=== PATIENT | female | born 1940 | race Caucasian/White ===

== ENCOUNTER → 2017-02-28 | Outpatient (CLI) | payer MEDICARE ==
[~2017-02-28] MED LIST: ACETAMINOPHEN120 MG ORAL; ASPIR 8181 MG ORAL; BISACODYL5 MG ORAL; CENTRUM SILVER1 EAC4 PO; COZAAR50 MG ORAL; FUROSEMIDE20 M1 ORAL; IBUPROFEN600 MG ORAL; KLOR-CON20 MEQ ORAL; LIPITOR20 MG ORAL; LISINOPRIL20 MG ORAL; LOPERAMIDE2 MG PO; METFORMIN HCL500 M1 ORAL; METOPROLOL SUCC50 MG ORAL; MILK OF MA400 MG/51 ORAL; NORVASC10 MG ORAL; TRAZODONE HCL50 MG ORAL; ZOLOFT100 MG ORAL
== END | disposition home or self-care (01) ==
LOC: ECT 09:16
DX: F31.4 Bipolar disorder, current episode depressed, severe, without psychotic features (principal); I12.9 Hypertensive chronic kidney disease with stage 1 through stage 4 chronic kidney disease, or unspecified chronic kidney disease; E11.22 Type 2 diabetes mellitus with diabetic chronic kidney disease; N18.9 Chronic kidney disease, unspecified; Z99.2 Dependence on renal dialysis

== ENCOUNTER 2017-03-04 06:26 | Outpatient (RCR) | payer MEDICARE ==
[~2017-03-04] VITALS: Ht 160 cm; Wt 135.0 kg
[2017-03-04] MEDS ORDERED: Glycopyrrolate 0.2mg/ml 1ml Vial ONE (06:27)
[2017-03-04] MEDS ORDERED: Midazolam 2mg/2ml Inj ONE (06:27)
[2017-03-04] MEDS ORDERED: Succinylcholine 20mg/ml 10ml vial ONE (06:27)
[2017-03-04] MEDS ORDERED: Methohexital Sodium Syr 100mg/10ml IVP ONE (06:27)
[2017-03-06] MEDS ORDERED: Methohexital Sodium Syr 100mg/10ml IVP ONE (07:00)
[2017-03-06] MEDS ORDERED: Succinylcholine 20mg/ml 10ml vial ONE (07:00)
[2017-03-06] MEDS ORDERED: Glycopyrrolate 0.2mg/ml 1ml Vial ONE (07:00)
[2017-03-06] MEDS ORDERED: Midazolam 2mg/2ml Inj ONE (07:00)
[2017-03-06] MEDS ORDERED: NS 550ML IV ONE (07:00)
[2017-03-08] MEDS ORDERED: Midazolam 2mg/2ml Inj ONE (07:00)
[2017-03-08] MEDS ORDERED: NS 550ML IV ONE (07:00)
[2017-03-08] MEDS ORDERED: Succinylcholine 20mg/ml 10ml vial ONE (07:00)
[2017-03-08] MEDS ORDERED: Methohexital Sodium Syr 100mg/10ml IVP ONE (07:00)
[2017-03-08] MEDS ORDERED: Glycopyrrolate 0.2mg/ml 1ml Vial ONE (07:00)
== END 2017-03-13 | disposition home or self-care (01) ==
LOC: ECT 06:26
DX: F31.4 Bipolar disorder, current episode depressed, severe, without psychotic features (principal); N19 Unspecified kidney failure; Z99.2 Dependence on renal dialysis; E11.9 Type 2 diabetes mellitus without complications; I10 Essential (primary) hypertension
CPT/HCPCS: 90870; J0330; J2250; J2405; J7040

== ENCOUNTER 2017-03-15 08:39 | Outpatient (RCR) | payer MEDICARE ==
[~2017-03-15] VITALS: Ht 160 cm; Wt 61.2 kg
[2017-03-18] MEDS ORDERED: Glycopyrrolate 0.2mg/ml 1ml Vial ONE (08:00)
[2017-03-18] MEDS ORDERED: Succinylcholine 20mg/ml 10ml vial ONE (08:00)
[2017-03-18] MEDS ORDERED: Midazolam 2mg/2ml Inj ONE (08:00)
[2017-03-18] MEDS ORDERED: Methohexital Sodium Syr 100mg/10ml IVP ONE (08:00)
[2017-03-18] MEDS ORDERED: NS 550ML IV ONE (08:00)
[2017-03-18] MEDS ORDERED: Atropine Sulfate 0.4mg/ml inj IVP PRN (11:33)
[2017-03-20] MEDS ORDERED: Midazolam 2mg/2ml Inj ONE (08:00)
[2017-03-20] MEDS ORDERED: NS 550ML IV ONE (08:00)
[2017-03-20] MEDS ORDERED: Succinylcholine 20mg/ml 10ml vial ONE (08:00)
[2017-03-20] MEDS ORDERED: Glycopyrrolate 0.2mg/ml 1ml Vial ONE (08:00)
[2017-03-20] MEDS ORDERED: Methohexital Sodium Syr 100mg/10ml IVP ONE (08:00)
[2017-03-20] MEDS ORDERED: Atropine Sulfate 0.4mg/ml inj IVP PRN (09:23)
[2017-03-22] MEDS ORDERED: NS 550ML IV ONE (07:00)
[2017-03-22] MEDS ORDERED: Succinylcholine 20mg/ml 10ml vial ONE (07:00)
[2017-03-22] MEDS ORDERED: Glycopyrrolate 0.2mg/ml 1ml Vial ONE (07:00)
[2017-03-22] MEDS ORDERED: Midazolam 2mg/2ml Inj ONE (07:00)
[2017-03-22] MEDS ORDERED: Methohexital Sodium Syr 100mg/10ml IVP ONE (07:00)
[2017-03-22] MEDS ORDERED: Atropine Sulfate 0.4mg/ml inj IVP PRN (08:32)
[2017-03-25] MEDS ORDERED: Methohexital Sodium 500mg Vial IVP ONE (19:44)
[2017-03-25] MEDS ORDERED: Glycopyrrolate 0.2mg/ml 1ml Vial ONE (19:44)
[2017-03-25] MEDS ORDERED: Midazolam 2mg/2ml Inj ONE (19:44)
[2017-03-25] MEDS ORDERED: NS 550ML IV ONE (19:44)
[2017-03-25] MEDS ORDERED: Succinylcholine 20mg/ml 10ml vial ONE (19:44)
[2017-04-10] MEDS ORDERED: Midazolam 2mg/2ml Inj ONE (12:30)
[2017-04-10] MEDS ORDERED: Methohexital Sodium Syr 100mg/10ml IVP ONE (12:30)
[2017-04-10] MEDS ORDERED: Glycopyrrolate 0.2mg/ml 1ml Vial ONE (12:30)
[2017-04-10] MEDS ORDERED: NS 550ML IV ONE (12:30)
[2017-04-10] MEDS ORDERED: Succinylcholine 20mg/ml 10ml vial ONE (12:30)
== END 2017-04-12 | disposition home or self-care (01) ==
LOC: ECT 08:39
DX: F31.4 Bipolar disorder, current episode depressed, severe, without psychotic features (principal)
CPT/HCPCS: 90870; J0330; J2250; J2405; J3490; J7040

== ENCOUNTER 2017-04-29 06:52 | Outpatient (RCR) | payer MEDICARE | END 2017-05-13 | disposition home or self-care (01) | LOC: ECT 06:52 | DX: F31.4 Bipolar disorder, current episode depressed, severe, without psychotic features (principal) ==

== ENCOUNTER 2019-11-15 15:34 | Inpatient (IN) | payer MEDICARE ==
[~2019-11-15] VITALS: Ht 165.1 cm; Wt 68.5 kg
[2019-11-15 15:35] VITALS: BP 210/116
--- NOTE | 2019-11-15 15:35 | NUR ---
ED Nurse Note: Patient [facility] from [facility] d/t dizziness x 3 hours. Patient hypertensive when connected to the claims correspondence clerk, Dr. Gtz aware. 20 g IV started in left basilic and right forearm. Patient AxO x 4, no s/s of acute distress. Patient on the claims correspondence clerk, bed in lowest position. Blood sent to lab.
--- NOTE | 2019-11-15 16:02 | Emergency Room Report ---
History of Present Illness General Chief Complaint: Dizziness Source: Patient, Medical Record, EMS Present Illness HPI Patient presents with complaints of severe dizziness Reports that this morning patient awoke with symptoms Denies any change in medications denies any headache patient gets dialysis Saturday and is due tomorrow denies any focal weakness denies any visual changes Denies any recent travel or trauma Dizziness does not appear to be associated with any position or movement Allergies: Coded Allergies: No Known Allergies (Unverified , 09/07/16) Patient History Past Medical History: see triage record Last Menstrual Period: N/A Now: No Reviewed Nursing Documentation: PMH: Agreed; PSxH: Agreed Nursing Documentation-PMH Hx Hypertension: Yes Hx Diabetes: Yes - Type 2 Hx Cancer: No Hx Gastrointestinal Problems: No - ESRD History Of Psychiatric Problem: Yes - Depression Hx Neurological Problems: No Review of Systems All Other Systems: negative except mentioned in HPI Physical Exam Vital Signs Date Time Temp Pulse Resp B/P (MAP) Pulse Ox O2 Delivery O2 Flow Rate FiO2 11/15/19 15:26 98.1 84 16 210/116 (147) 98 Room Air Sp02 EP Interpretation: reviewed, normal General Appearance: well appearing, no apparent distress Head: normocephalic, atraumatic Eyes: bilateral eye PERRL, bilateral eye EOMI ENT: hearing grossly normal, normal pharynx, TMs + canals normal, uvula midline Neck: full range of motion, supple, no meningismus, no bony tend Respiratory: lungs clear, normal breath sounds, no rhonchi, no respiratory distress, no retraction, no accessory muscle use Cardiovascular #1: normal peripheral pulses, regular rate, rhythm, no edema, no gallop, no JVD, no murmur Gastrointestinal: normal bowel sounds, non tender, soft, no mass, no organomegaly, non-distended, no guarding, no hernia, no pulsatile mass, no rebound Genitourinary: no CVA tenderness Musculoskeletal: normal inspection Neurologic: motor strength/tone normal, forestry fire aide III-XII nml as tested, oriented x3 , sensory intact, responsive Psychiatric: mood/affect normal Skin: no rash - Dialysis catheter in the right upper chest Lymphatic: normal inspection, no adenopathy Medical Decision Making Diagnostic Impression: Primary Impression: Hyperkalemia Additional Impression: Dizziness ER Course Patient is a fairly complex patient with multiple differential to consideration including but not limited to cardiac cardiopulmonary and vascular emergencies Other neurological differentials also entertained Patient's blood work shows findings consistent with renal failure potassium level however is also high at 5.9 this is medically intervened patient's EKG does not show any changes at this time admitted for further care Labs Test 11/15/19 16:10 White Blood Count 9.1 K/UL (4.8-10.8) Red Blood Count 4.26 M/UL (4.20-5.40) Hemoglobin 12.8 G/DL (12.0-16.0) Hematocrit 41.4 % (37.0-47.0) Mean Corpuscular Volume 97 FL (80-99) Mean Corpuscular Hemoglobin 30.1 PG (27.0-31.0) Mean Corpuscular Hemoglobin Concent 31.0 G/DL (32.0-36.0) Red Cell Distribution Width 14.1 % (11.6-14.8) Platelet Count 155 K/UL (150-450) Mean Platelet Volume 8.1 FL (6.5-10.1) Neutrophils (%) (Auto) 72.6 % (45.0-75.0) Lymphocytes (%) (Auto) 18.7 % (20.0-45.0) Monocytes (%) (Auto) 6.5 % (1.0-10.0) Eosinophils (%) (Auto) 1.2 % (0.0-3.0) Basophils (%) (Auto) 1.0 % (0.0-2.0) Sodium Level 138 MMOL/L (136-145) Potassium Level 5.9 MMOL/L (3.5-5.1) Chloride Level 100 MMOL/L (98-107) Carbon Dioxide Level 23 MMOL/L (21-32) Anion Gap 15 mmol/L (5-15) Blood Urea Nitrogen 68 mg/dL (7-18) Creatinine 8.1 MG/DL (0.55-1.30) Estimat Glomerular Filtration Rate mL/min (>60) Glucose Level 106 MG/DL (74-106) Calcium Level 9.2 MG/DL (8.5-10.1) Total Bilirubin 0.4 MG/DL (0.2-1.0) Aspartate Amino Transf (AST/SGOT) 19 U/L (15-37) Alanine Aminotransferase (ALT/SGPT) 13 U/L (12-78) Alkaline Phosphatase 73 U/L (46-116) Total Creatine Kinase 75 U/L (26-308) Troponin I 0.012 ng/mL (0.000-0.056) Total Protein 8.1 G/DL (6.4-8.2) Albumin 3.8 G/DL (3.4-5.0) Globulin 4.3 g/dL Albumin/Globulin Ratio 0.9 (1.0-2.7) Lipase 325 U/L (73-393) Rhythm Strip Diag. Results EP Interpretation: yes Rate: 88 Rhythm: NSR, no PVC's, no ectopy Chest X-Ray Diagnostic Results Chest X-Ray Diagnostic Results : Chest X-Ray Ordered: Yes # of Views/Limited/Complete: 1 View Indication: Chest Pain EP Interpretation: Yes Interpretation: no consolidation, no effusion, no pneumothorax Impression: No acute disease Electronically Signed by: Rodrigue Gtz DO CT/MRI/US Diagnostic Results CT/MRI/US Diagnostic Results : Impression CT head no acute disease Last Vital Signs Date Time Temp Pulse Resp B/P (MAP) Pulse Ox O2 Delivery O2 Flow Rate FiO2 11/15/19 15:26 98.1 84 16 210/116 (147) 98 Room Air Status: improved Disposition: ADMITTED INPATIENT Condition: Serious Rodrigue Gtz DO Nov 15, 2019 16:02
[2019-11-15 16:50] LABS: EOSINOPHILS % (AUTO) 1.2 % (0.0-3.0); HEMATOCRIT 41.4 % (37.0-47.0); HEMOGLOBIN 12.8 G/DL (12.0-16.0); LYMPHOCYTES % (AUTO) 18.7 % (20.0-45.0); MEAN CORPUSCULAR VOLUME 97 FL (80-99); MONOCYTES % (AUTO) 6.5 % (1.0-10.0); NEUTROPHILS % (AUTO) 72.6 % (45.0-75.0); PLATELET COUNT 155 K/UL (150-450); RED BLOOD COUNT 4.26 M/UL (4.20-5.40); RED CELL DISTRIBUTION WIDTH 14.1 % (11.6-14.8); WHITE BLOOD COUNT 9.1 K/UL (4.8-10.8)
--- NOTE | 2019-11-15 17:07 | Diagnostic Imaging Report ---
Indication: Headache Technique: Contiguous 5 mm thick transaxial imaging of the head obtained in a Siemens Sensation [address] scanner. Soft tissue and bone windows generated. Automatic Exposure Control was utilized. Total Dose length Product (DLP): [address] Dose Index Volume (CTDIvol): 60 mGy Comparison: none Findings: There is mild prominence of the ventricles, basal cisterns, and cerebral sulci consistent with atrophy. Mild, nonspecific, white matter hypoattenuation is noted throughout the brain consistent with chronic small vessel disease. Intracranial arterial calcifications are noted consistent with atherosclerotic disease. There is no midline shift, edema, acute hemorrhage, mass effect, or abnormal extra-axial fluid collections. Bones are unremarkable. Impression: No acute intracranial bleed, mass effect or edema. Mild atrophy of the brain. Nonspecific white matter hypoattenuation probably due to chronic small vessel disease. [facility] has communicated the preliminary results to the Emergency Department. Their findings are largely concordant with this report. The CT scanner at [facility] is accredited by the [employer] and the scans are performed using dose optimization techniques as appropriate to a performed exam including Automatic Exposure control.
--- NOTE | 2019-11-15 17:20 | NUR ---
ED Nurse Note: Patient's BP currently 170/98, amlodipine given per Dr. Gtz. Patient resting in bed, no s/s of acute distress.
[2019-11-15 17:37] LABS: ALANINE AMINOTRANSFERASE 13 U/L (12-78); ALBUMIN 3.8 G/DL (3.4-5.0); ALBUMIN/GLOBULIN RATIO 0.9 (1.0-2.7); ALKALINE PHOSPHATASE 73 U/L (46-116); ANION GAP 15 mmol/L (5-15); ASPARTATE AMINO TRANSFERASE 19 U/L (15-37); BILIRUBIN,TOTAL 0.4 MG/DL (0.2-1.0); BLOOD UREA NITROGEN 68 mg/dL (7-18); CALCIUM 9.2 MG/DL (8.5-10.1); CARBON DIOXIDE 23 MMOL/L (21-32); CHLORIDE 100 MMOL/L (98-107); CREATINE KINASE 75 U/L (26-308); CREATININE 8.1 MG/DL (0.55-1.30); POTASSIUM 5.9 MMOL/L (3.5-5.1); SODIUM 138 MMOL/L (136-145)
[2019-11-15] MEDS ORDERED: Sodium Polystyrene Sulfonate 15gm Powder ORAL ONE (17:45)
[2019-11-15] MEDS ORDERED: Insulin Human Regular 100units/ml 3ml IV ONE (17:45)
[2019-11-15 18:24] VITALS: BP 170/98
--- NOTE | 2019-11-15 19:05 | NUR ---
HANDOFF: Handoff report given to Salena QUILES.
--- NOTE | 2019-11-15 19:19 | NUR ---
ED Nurse Note: pt refused CRE/VRE swab, explained risks of this and hospital protocol to pt, she understands and still refuses the swab. MRSA swab obtained
--- NOTE | 2019-11-15 19:50 | NUR ---
ED Nurse Note: Handoff report given to Jay QUILES
[2019-11-15] MEDS: Metoprolol Succinate XL 50mg tab ORAL SCH (20:00)
--- NOTE | 2019-11-15 20:30 | NUR ---
NURSE NOTES: Received patient from ED. Patient on room air, no signs of respiratory distress. Alert and oriented to self, time, place, and situation. Oriented patient to the unit. Call light within reach. Bed in low position, locked, bed alarm on.
[2019-11-15 20:40] VITALS: BP 104/71
[2019-11-15] MEDS ORDERED: Sodium Polystyrene Sulfonate 15gm Powder ORAL SCH (22:00)
--- NOTE | 2019-11-15 23:00 | NUR ---
NURSE NOTES: Patient c/o difficulty sleeping. Notified Dr. Knight and requested medication for the patient.
[2019-11-16] VITALS (9 sets, daily range): BP systolic 119–190; BP diastolic 68–89
[2019-11-16] MEDS: HydrALAZINE 25mg tab ORAL SCH ×3 (00:38→05:21)
[2019-11-16] MEDS: Zolpidem 5mg tab ORAL PRN (01:10)
[2019-11-16 07:29] LABS: BASOPHILS % (AUTO) 1.1 % (0.0-2.0); EOSINOPHILS % (AUTO) 2.1 % (0.0-3.0); HEMATOCRIT 35.8 % (37.0-47.0); HEMOGLOBIN 12.2 G/DL (12.0-16.0); LYMPHOCYTES % (AUTO) 18.5 % (20.0-45.0); MEAN CORPUSCULAR VOLUME 91 FL (80-99); MONOCYTES % (AUTO) 7.9 % (1.0-10.0); NEUTROPHILS % (AUTO) 70.5 % (45.0-75.0); PLATELET COUNT 150 K/UL (150-450); RED BLOOD COUNT 3.95 M/UL (4.20-5.40); RED CELL DISTRIBUTION WIDTH 13.4 % (11.6-14.8); WHITE BLOOD COUNT 9.7 K/UL (4.8-10.8)
--- NOTE | 2019-11-16 07:30 | NUR ---
NURSE NOTES: Received pt from DAISY QUILES. Pt is alert and awake. Pt is in RA, No SOB or acute respiratory distress noted. Pt has intact iv acces LAC and RFA 20G SL. No complain of pain at this moment. pt is on continues heart monitoring. Pt is eating breakfast by observation. Dr LOMELI is aware about K 6, he will F/U and is aware about HTN, no new order to RN. all needs attended, bed is locked and is in the lowest position, call light within easy reach. will continue to monitor.
[2019-11-16 07:58] LABS: ALANINE AMINOTRANSFERASE 11 U/L (12-78); ALBUMIN 3.4 G/DL (3.4-5.0); ALBUMIN/GLOBULIN RATIO 0.9 (1.0-2.7); ALKALINE PHOSPHATASE 60 U/L (46-116); ANION GAP 14 mmol/L (5-15); ASPARTATE AMINO TRANSFERASE 16 U/L (15-37); BILIRUBIN,TOTAL 0.4 MG/DL (0.2-1.0); BLOOD UREA NITROGEN 77 mg/dL (7-18); CALCIUM 8.1 MG/DL (8.5-10.1); CARBON DIOXIDE 23 MMOL/L (21-32); CHLORIDE 103 MMOL/L (98-107); CHOLESTEROL 147 MG/DL (< 200); CREATININE 9.5 MG/DL (0.55-1.30); HDL CHOLESTEROL 55 MG/DL (40-60); PHOSPHORUS 8.1 MG/DL (2.5-4.9); SODIUM 140 MMOL/L (136-145); TRIGLYCERIDES 46 MG/DL (30-150)
[2019-11-16] MEDS ORDERED: Sodium Polystyrene Sulfonate 15gm Powder ORAL SCH (08:30)
[2019-11-16] MEDS ORDERED: Docusate 100mg cap ORAL SCH (09:00)
--- NOTE | 2019-11-16 09:30 | NUR ---
NURSE NOTES: Dr LOMELI visited pt and he is aware about HD today but he emphasis to give pt k oxalate and BP meds, noted and carried out. will continue to monitor.
[2019-11-16] MEDS: Metoprolol Succinate XL 50mg tab ORAL SCH ×2 (09:39→21:22)
[2019-11-16] MEDS: Aspirin EC 81mg tab ORAL SCH (09:39)
[2019-11-16] MEDS: Heparin 5000 units/ml inj SUBQ SCH ×2 (09:40→21:26)
--- NOTE | 2019-11-16 10:47 | Cardiac Electrophysiology PN ---
Subjective Subjective [id number] Objective Last 24 Hour Vital Signs Date Time Temp Pulse Resp B/P (MAP) Pulse Ox O2 Delivery O2 Flow Rate FiO2 11/16/19 09:40 78 190/80 11/16/19 09:39 78 190/80 11/16/19 08:15 73 11/16/19 08:00 96.6 78 18 190/80 (116) 95 11/16/19 05:21 160/78 11/16/19 04:00 97.9 74 20 160/78 (105) 93 11/16/19 04:00 72 11/16/19 00:38 155/79 11/16/19 00:37 73 155/79 (104) 11/16/19 00:00 97.9 71 20 119/68 (85) 93 11/16/19 00:00 68 11/15/19 21:00 Room Air 11/15/19 20:45 Room Air 11/15/19 20:40 97.7 71 18 104/71 (82) 93 11/15/19 20:15 85 18 119/86 100 Room Air 11/15/19 20:00 71 104/71 11/15/19 18:24 98.0 84 17 170/98 98 Room Air 11/15/19 17:49 73 170/98 11/15/19 15:35 84 16 Room Air 11/15/19 15:35 98.1 84 16 210/116 98 Room Air 11/15/19 15:26 98.1 84 16 210/116 (147) 98 Room Air Intake and Output 11/15/19 11/16/19 19:00 07:00 Intake Total 810 ml Balance 810 ml Intake Oral 810 ml # Bowel Movements 1 Laboratory Tests Test 11/15/19 16:10 11/16/19 06:40 White Blood Count 9.1 K/UL (4.8-10.8) 9.7 K/UL (4.8-10.8) Red Blood Count 4.26 M/UL (4.20-5.40) 3.95 M/UL (4.20-5.40) L Hemoglobin 12.8 G/DL (12.0-16.0) 12.2 G/DL (12.0-16.0) Hematocrit 41.4 % (37.0-47.0) 35.8 % (37.0-47.0) L Mean Corpuscular Volume 97 FL (80-99) 91 FL (80-99) Mean Corpuscular Hemoglobin 30.1 PG (27.0-31.0) 31.0 PG (27.0-31.0) Mean Corpuscular Hemoglobin Concent 31.0 G/DL (32.0-36.0) L 34.2 G/DL (32.0-36.0) Red Cell Distribution Width 14.1 % (11.6-14.8) 13.4 % (11.6-14.8) Platelet Count 155 K/UL (150-450) 150 K/UL (150-450) Mean Platelet Volume 8.1 FL (6.5-10.1) 6.9 FL (6.5-10.1) Neutrophils (%) (Auto) 72.6 % (45.0-75.0) 70.5 % (45.0-75.0) Lymphocytes (%) (Auto) 18.7 % (20.0-45.0) L 18.5 % (20.0-45.0) L Monocytes (%) (Auto) 6.5 % (1.0-10.0) 7.9 % (1.0-10.0) Eosinophils (%) (Auto) 1.2 % (0.0-3.0) 2.1 % (0.0-3.0) Basophils (%) (Auto) 1.0 % (0.0-2.0) 1.1 % (0.0-2.0) Sodium Level 138 MMOL/L (136-145) 140 MMOL/L (136-145) Potassium Level 5.9 MMOL/L (3.5-5.1) H 6.0 MMOL/L (3.5-5.1) *H Chloride Level 100 MMOL/L (98-107) 103 MMOL/L (98-107) Carbon Dioxide Level 23 MMOL/L (21-32) 23 MMOL/L (21-32) Anion Gap 15 mmol/L (5-15) 14 mmol/L (5-15) Blood Urea Nitrogen 68 mg/dL (7-18) H 77 mg/dL (7-18) H Creatinine 8.1 MG/DL (0.55-1.30) H 9.5 MG/DL (0.55-1.30) H Estimat Glomerular Filtration Rate mL/min (>60) mL/min (>60) Glucose Level 106 MG/DL (74-106) 98 MG/DL (74-106) Calcium Level 9.2 MG/DL (8.5-10.1) 8.1 MG/DL (8.5-10.1) L Total Bilirubin 0.4 MG/DL (0.2-1.0) 0.4 MG/DL (0.2-1.0) Aspartate Amino Transf (AST/SGOT) 19 U/L (15-37) 16 U/L (15-37) Alanine Aminotransferase (ALT/SGPT) 13 U/L (12-78) 11 U/L (12-78) L Alkaline Phosphatase 73 U/L (46-116) 60 U/L (46-116) Total Creatine Kinase 75 U/L (26-308) Troponin I 0.012 ng/mL (0.000-0.056) 0.025 ng/mL (0.000-0.056) Total Protein 8.1 G/DL (6.4-8.2) 7.3 G/DL (6.4-8.2) Albumin 3.8 G/DL (3.4-5.0) 3.4 G/DL (3.4-5.0) Globulin 4.3 g/dL 3.9 g/dL Albumin/Globulin Ratio 0.9 (1.0-2.7) L 0.9 (1.0-2.7) L Lipase 325 U/L (73-393) Hemoglobin A1c 5.8 % (4.3-6.0) Uric Acid 5.8 MG/DL (2.6-7.2) Phosphorus Level 8.1 MG/DL (2.5-4.9) H Magnesium Level 2.4 MG/DL (1.8-2.4) C-Reactive Protein, Quantitative 2.1 mg/dL (0.00-0.90) H Pro-B-Type Natriuretic Peptide 53274 pg/mL (0-125) H Triglycerides Level 46 MG/DL (30-150) Cholesterol Level 147 MG/DL (< 200) LDL Cholesterol 73 mg/dL (<100) HDL Cholesterol 55 MG/DL (40-60) Cholesterol/HDL Ratio 2.7 (3.3-4.4) L Thyroid Stimulating Hormone (TSH) 0.471 uiU/mL (0.358-3.740) Microbiology Date/Time Source Procedure Growth Status 11/16/19 05:40 Rectum Received Gilmar Kimball MD Nov 16, 2019 10:47
--- NOTE | 2019-11-16 10:58 | Consultation ---
Consult Note Consult Note asked to eval for dialysis management Patient on dialysis Via right chest permacath dialysis M-W-Fr, last Saturday presented with high BP to ER and high K Patient interviewed examined ER: Patient presents with complaints of severe dizziness Reports that this morning patient awoke with symptoms Denies any change in medications denies any headache patient gets dialysis Saturday and is due tomorrow denies any focal weakness denies any visual changes Denies any recent travel or trauma Dizziness does not appear to be associated with any position or movement No Known Allergies (Unverified , 09/07/16) Hx Hypertension: Yes Hx Diabetes: Yes - Type 2 Hx Gastrointestinal Problems: No - ESRD History Of Psychiatric Problem: Yes - Depression . Assessment/Plan Hypertension Urgency Hypertensive Kidney Disease ESRD HyperKalemia BP meds- Dialysis ordered kayexelate- refuses 2D echo Phos binders per orders Aden Camp MD Nov 16, 2019 10:58
--- NOTE | 2019-11-16 11:40 | NUR ---
NURSE NOTES: pt signed HD consent form.
[2019-11-16] MEDS: Docusate 100mg cap ORAL SCH ×2 (13:39→17:19)
--- NOTE | 2019-11-16 13:55 | NUR ---
PT NOTE Received MD order for PT evaluation. Attempted to see patient for PT evaluation. patient c/o dizziness, declining to participate with PT evaluation at this time. Anshul RN notified, will follow up tomorrow.
[2019-11-16] MEDS: HydrALAZINE 50mg tab ORAL SCH ×2 (14:00→21:26)
--- NOTE | 2019-11-16 14:35 | Diagnostic Imaging Report ---
Indication: Dyspnea Comparison: 08/07/2012 A single view chest radiograph was obtained. Findings: There is a right permacath present in good position. Tip is in the SVC. Heart size is normal. Lungs are clear. The bones are osteopenic. There is an old fracture of the left proximal humerus. IMPRESSION: No acute disease
--- NOTE | 2019-11-16 15:45 | History and Physical Report ---
DATE OF ADMISSION: 11/15/2019 DATE AND TIME SEEN: 11/16/2019 at 9 a.m. CONSULTANTS: 1. Gilmar Kimball M.D. 2. Aden Camp M.D. CHIEF COMPLAINT: Dizziness, elevated blood pressure, ESRD. BRIEF HISTORY: This is an 79-year-old female, who lives at home with history of ESRD, on dialysis complaining of increased dizziness yesterday with elevated blood pressure came to [place], diagnosed as above, admitted to telemetry for further care. Currently, calm, in bed. No complaint. No chest pain. No shortness of breath. No nausea, vomiting, or diarrhea. PAST MEDICAL HISTORY: Includes hyperkalemia, ESRD, dizziness, elevated blood pressure, hypertension. PAST SURGICAL HISTORY: Unknown. MEDICATIONS: Include docusate sodium, amlodipine, aspirin, heparin, zolpidem, hydralazine, pantoprazole, atorvastatin, metoprolol, clonidine. ALLERGIES: Denies. SOCIAL HISTORY: No smoking. No alcohol. No intravenous drug abuse. FAMILY HISTORY: Noncontributory. PHYSICAL EXAMINATION: GENERAL: Calm in bed, oriented x2, in no acute distress. VITAL SIGNS: Temperature is 96, pulse 78, respirations 18, blood pressure 190/80. CARDIOVASCULAR: No murmur. LUNGS: Distant and clear. ABDOMEN: Bowel sounds positive. Nontender. Nondistended. EXTREMITIES: No cyanosis or edema. NEUROLOGIC: The patient moves all extremities, slightly weak. LABORATORY AND DIAGNOSTIC DATA: Labs at this time show CBC is normal. BMP show potassium 6.0, BUN/creatinine . [place] 0.[place] [address]. ASSESSMENT: 1. ESRD. 2. Dizziness. 3. Elevated blood pressure. 4. Hyperkalemia. PLAN: 1. Blood pressure control. 2. Cardiology followup. 3. Dietary followup. 4. Dialysis p.r.n. 5. Resume home medications. 6. PT and dietary evaluation. 7. CBC, BMP in the morning. Clarence Knight D.O. DR: AMITA JOB#: [id number] CC:
--- NOTE | 2019-11-16 15:57 | NUR ---
NURSE NOTES: pt's son called and asked to speak with Dr POLLOCK and Dr LOMELI are aware, ph: [phone].
--- NOTE | 2019-11-16 16:10 | NUR ---
CASE MANAGEMENT:REVIEW 79 YR OLD FEMALE YOUSIF FROM [facility] CC: DIZZINESS PMH: ESRD ON HD SI:HYPERKALEMIA. ACCELERATED HTN 98.1 84 16 210/116 98% ON RA K+5.9 BUN+68 CR+8.1 IS: 500CC NS BOLUS NORVASC PO KAYEXALATE PO IV D50 IV INSULIN CT HEAD CXR : TO TELEMETRY 11/16/19 SI: K+6.0 BUN+77 CR+9.5 IS: KAYEXALATE PO X1 : TELEMETRY
--- NOTE | 2019-11-16 16:30 | NUR ---
NURSE NOTES: HD started at 1630, will continue to monitor.
--- NOTE | 2019-11-16 16:45 | Consultation ---
DATE OF CONSULTATION: 11/16/2019 CARDIOLOGY CONSULTATION CONSULTING PHYSICIAN: Gilmar Kimball M.D. REFERRING PHYSICIAN: Clarence Knight D.O. REASON FOR CONSULTATION: Accelerated hypertension. HISTORY OF PRESENT ILLNESS: The patient is a very pleasant 79-year-old lady with history of hypertension, diabetes, and end-stage renal disease on hemodialysis, who was brought to the emergency room for severe dizziness. The patient has not had any recent change in medication. Denies any headache. The patient usually gets dialysis Saturday, Saturday, and Saturday and she is scheduled for dialysis today. The patient's blood pressure was in the 200 range and a Cardiology consultation was obtained for further evaluation. REVIEW OF SYSTEMS: Review of systems was negative other than what is mentioned in the history of present illness. PAST MEDICAL HISTORY: As mentioned above. FAMILY HISTORY: Noncontributory. SOCIAL HISTORY: Does not smoke or drink alcohol. Lives with family. PHYSICAL EXAMINATION: VITAL SIGNS: Show blood pressure 190/80, pulse 78, respirations 18, and temperature 96.6. HEAD AND NECK: No JVD. LUNGS: Clear. CARDIOVASCULAR: Regular S1 and S2 with no gallop or murmur. ABDOMEN: Soft. EXTREMITIES: No pitting edema. Dialysis access in the right chest. LABORATORY DATA: Labs show white count 9.7, hemoglobin 12.2, hematocrit 35.8, and platelet count 150. Sodium 140, potassium is 6, BUN of 77, creatinine 9.5, glucose of 88. Troponin negative x2. ASSESSMENT AND PLAN: 1. Accelerated hypertension. Her EKG is completely normal. The patient is already on Norvasc 10 mg daily as well as hydralazine 25 mg every 8 hours and metoprolol 50 mg daily. The patient also has as needed clonidine every and will be undergoing hemodialysis. 2. End-stage renal disease, on hemodialysis. 3. Hyponatremia, resolved. 4. Hyperkalemia. Again, patient will be undergoing dialysis. 5. Two negative troponins. Echocardiogram will be repeated as BNP is more than 11,000. Thank you very much, Dr. Knight, for allowing me to participate in the care of this patient. Please do not hesitate to contact me for any questions regarding my evaluation. Sincerely, Gilmar Kimball M.D. DR: Brittani JOB#: [id number] CC:
[2019-11-16] MEDS ORDERED: CARVEDILOL25 MG ORAL (18:47)
[2019-11-16] MEDS ORDERED: HYDRALAZINE HCL25 M1 ORAL (18:47)
[2019-11-16] MEDS ORDERED: ROBITUSSIN COU118 M1 ORAL (18:47)
[2019-11-16] MEDS ORDERED: MIRALAX17 G2 ORAL (18:47)
[2019-11-16] MEDS ORDERED: PRAVASTATIN SOD20 M1 ORAL (18:47)
[2019-11-16] MEDS ORDERED: SERTRALINE HCL50 MG ORAL (18:47)
[2019-11-16] MEDS ORDERED: DOCUSATE SODIU100 MG ORAL (18:47)
[2019-11-16] MEDS ORDERED: CALCIUM ACETAT667 M1 PO (18:47)
[2019-11-16] MEDS ORDERED: SYNTHROID112 MCG ORAL (18:47)
[2019-11-16] MEDS ORDERED: LOPERAMIDE2 M1 PO (18:47)
[2019-11-16] MEDS ORDERED: TYLENOL EXTRA500 MG ORAL (18:47)
--- NOTE | 2019-11-16 19:20 | NUR ---
NURSE NOTES: Received pt and report from KB Landers. Observed pt resting in bed with both eyes open and receiving HD. HD nurse at bedside. Pt is A/Ox3. air sampling and monitoring is in place, IV site intact, asymptomatic, and patent. Bed is in the lowest position and locked. Call light and bedside table is within reach. No signs/symptoms of acute distress noted at this time. Will continue plan of care.
--- NOTE | 2019-11-16 19:29 | NUR ---
HAND-OFF: Report given to KENYON RN. HD finished at this moment with 2L out put, pt is stable, BP 135/76.
--- NOTE | 2019-11-16 20:00 | NUR ---
NURSE NOTES: HD completed. Per HD nurse, Christina Crawley, 2L removed. No signs/symptoms of acute distress noted at this time. Will continue to monitor pt.
[2019-11-17] VITALS (8 sets, daily range): BP systolic 133–179; BP diastolic 59–86
[2019-11-17] MEDS: Zolpidem 5mg tab ORAL PRN (00:30)
--- NOTE | 2019-11-17 02:21 | NUR ---
NURSE NOTES: Observed pt asleep in bed. No signs/symptoms of acute distress noted at this time. Will continue plan of care.
[2019-11-17] MEDS: HydrALAZINE 50mg tab ORAL SCH ×3 (06:14→21:55)
--- NOTE | 2019-11-17 07:40 | NUR ---
HAND-OFF: Report given to KB Estrada. Dr. Kimball at bedside. Plan of care endorsed.
--- NOTE | 2019-11-17 07:46 | NUR ---
NURSE NOTES: Received report from [place]/RN, Patient is awake lying semi-mayorga's, resting comfortably. Able to make needs known, denies pain at this time. On room air, no acute distress/SOB noted. Breathing even and unlabored. IV on Left AC & Right FA, patent, no bleeding or infiltration noted. Bed in low position and locked, Bed alarm engaged, side rails up x3. Call light within reach, Encouraged to use call light when needed. Will continue plan of care.
[2019-11-17 09:12] LABS: BASOPHILS % (AUTO) 1.2 % (0.0-2.0); EOSINOPHILS % (AUTO) 1.4 % (0.0-3.0); HEMOGLOBIN 12.2 G/DL (12.0-16.0); LYMPHOCYTES % (AUTO) 23.8 % (20.0-45.0); MEAN CORPUSCULAR VOLUME 90 FL (80-99); MONOCYTES % (AUTO) 8.4 % (1.0-10.0); NEUTROPHILS % (AUTO) 65.2 % (45.0-75.0); PLATELET COUNT 161 K/UL (150-450); RED BLOOD COUNT 4.01 M/UL (4.20-5.40); RED CELL DISTRIBUTION WIDTH 13.3 % (11.6-14.8)
--- NOTE | 2019-11-17 09:12 | Cardiac Electrophysiology PN ---
Assessment/Plan Assessment/Plan 1. Accelerated HTN. Her EKG is completely normal. Continue Norvasc 10 mg daily, hydralazine 75 mg tid and metoprolol 50 mg bid. Also on hemodialysis. Two negative troponins. Echocardiogram EF 65% 2. End-stage renal disease, on hemodialysis. 3. Hyponatremia, resolved. 4. Hyperkalemia. Will be undergoing dialysis. Subjective Subjective No CP or SOB. Remained in SR Objective Last 24 Hour Vital Signs Date Time Temp Pulse Resp B/P (MAP) Pulse Ox O2 Delivery O2 Flow Rate FiO2 11/17/19 08:00 98.0 69 18 133/72 (92) 99 11/17/19 06:14 155/68 11/17/19 06:00 60 155/68 (97) 11/17/19 04:51 179/83 11/17/19 04:00 71 11/17/19 04:00 97.3 69 19 179/83 (115) 95 11/17/19 00:00 97.1 75 17 150/79 (102) 97 11/17/19 00:00 75 11/16/19 21:26 164/85 11/16/19 21:22 80 164/85 11/16/19 21:00 Room Air 11/16/19 20:00 97.7 76 19 156/72 (100) 95 11/16/19 20:00 73 11/16/19 18:17 153/69 (97) 11/16/19 16:00 61 11/16/19 16:00 98.2 72 18 182/89 (120) 97 11/16/19 14:00 140/82 11/16/19 12:00 96.6 70 18 140/82 (101) 97 11/16/19 11:50 83 11/16/19 10:30 170/82 (111) 11/16/19 09:40 78 190/80 11/16/19 09:39 78 190/80 Intake and Output 11/16/19 11/17/19 19:00 07:00 Intake Total 2240 ml Output Total 1500 ml 2000 ml Balance -1500 ml 240 ml Intake Oral 240 ml Hemodialysis 2000 ml Output Urine Total 1500 ml Hemodialysis UF 2000 ml # Voids 2 Laboratory Tests Test 11/17/19 08:30 White Blood Count Pending Red Blood Count Pending Hemoglobin Pending Hematocrit Pending Mean Corpuscular Volume Pending Mean Corpuscular Hemoglobin Pending Mean Corpuscular Hemoglobin Concent Pending Red Cell Distribution Width Pending Platelet Count Pending Mean Platelet Volume Pending Neutrophils (%) (Auto) Pending Lymphocytes (%) (Auto) Pending Monocytes (%) (Auto) Pending Eosinophils (%) (Auto) Pending Basophils (%) (Auto) Pending Sodium Level Pending Potassium Level Pending Chloride Level Pending Carbon Dioxide Level Pending Blood Urea Nitrogen Pending Creatinine Pending Estimat Glomerular Filtration Rate Pending Glucose Level Pending Calcium Level Pending Phosphorus Level Pending Magnesium Level Pending Total Bilirubin Pending Direct Bilirubin Pending Aspartate Amino Transf (AST/SGOT) Pending Alanine Aminotransferase (ALT/SGPT) Pending Alkaline Phosphatase Pending Troponin I Pending C-Reactive Protein, Quantitative Pending Pro-B-Type Natriuretic Peptide Pending Total Protein Pending Albumin Pending Microbiology Date/Time Source Procedure Growth Status 11/16/19 05:40 Rectum Received Objective HEAD AND NECK: No JVD. LUNGS: Clear. CARDIOVASCULAR: Regular S1 and S2 with no gallop or murmur. ABDOMEN: Soft. EXTREMITIES: No pitting edema. Dialysis access in the right chest. Gilmar Kimball MD Nov 17, 2019 09:12
[2019-11-17] MEDS: Docusate 100mg cap ORAL SCH ×4 (09:13→18:00)
[2019-11-17] MEDS: Aspirin EC 81mg tab ORAL SCH (09:13)
[2019-11-17] MEDS: Metoprolol Succinate XL 50mg tab ORAL SCH ×2 (09:13→21:01)
[2019-11-17] MEDS: Heparin 5000 units/ml inj SUBQ SCH ×2 (09:19→21:00)
[2019-11-17 09:28] LABS: ANION GAP 13 mmol/L (5-15); BLOOD UREA NITROGEN 47 mg/dL (7-18); CALCIUM 8.6 MG/DL (8.5-10.1); CARBON DIOXIDE 29 MMOL/L (21-32); CHLORIDE 100 MMOL/L (98-107); CREATININE 7.1 MG/DL (0.55-1.30); POTASSIUM 3.6 MMOL/L (3.5-5.1); SODIUM 142 MMOL/L (136-145)
[2019-11-17 09:42] LABS: ALANINE AMINOTRANSFERASE 18 U/L (12-78); ALBUMIN 3.4 G/DL (3.4-5.0); ALKALINE PHOSPHATASE 60 U/L (46-116); ASPARTATE AMINO TRANSFERASE 17 U/L (15-37); BILIRUBIN,DIRECT 0.1 MG/DL (0.0-0.3); BILIRUBIN,TOTAL 0.4 MG/DL (0.2-1.0); PHOSPHORUS 6.8 MG/DL (2.5-4.9)
--- NOTE | 2019-11-17 11:30 | NUR ---
PT NOTE Attempted x2 to see patient for PT evaluation. Earlier in the morning patient declined stating that it was too early for her. This PT returned later in the morning and patient declined again to participate with PT evaluation. When patient was asked for reason for declining, patient stated "I just don't want to." Natalie RN notified, will follow.
--- NOTE | 2019-11-17 13:20 | NUR ---
RD ASSESSMENT & RECOMMENDATIONS SEE CARE ACTIVITY FOR COMPLETE ASSESSMENT DAILY ESTIMATED NEEDS: Needs based on ERSD, on HD/ 66kg 25-30 kcals/kg 4193-6492 total kcals 1.2-1.8 g protein/kg 79-119 g total protein 20-22 mL/kg 0662-0682 total fluid mLs NUTRITION DIAGNOSIS: Increased kcal/prot intake needs R/T ESRD as evidenced by HD dependent. CURRENT DIET:RENAL, CARDIAC, KOSHER PO DIET RECOMMENDATIONS: Renal, Kosher ADDITIONAL RECOMMENDATIONS: * Daily standing wt monitoring -> Rec obtain dry wt post HD * Monitor lytes (elev phos) * F/up WC eval- rec add Nephrovite x 1 * Monitor for continued good PO intake
--- NOTE | 2019-11-17 13:24 | General Progress Note ---
Assessment/Plan Problem List: (1) Hyperkalemia ICD Codes: E87.5 - Hyperkalemia SNOMED: 53615065 (2) Dizziness ICD Codes: R42 - Dizziness and giddiness SNOMED: 664659962, 682165327 (3) ESRD (end stage renal disease) ICD Codes: N18.6 - End stage renal disease SNOMED: 86230568 (4) HTN (hypertension) ICD Codes: I10 - Essential (primary) hypertension SNOMED: 13401388 Status: stable, progressing Assessment/Plan: ot diet bp comtrol dilysis cbc bmp am transfer [place] if [place] Subjective Constitutional: Reports: weakness Allergies: Coded Allergies: No Known Allergies (Unverified , 09/07/16) All Systems: reviewed and negative except above Subjective sl anxious in bed Objective Last 24 Hour Vital Signs Date Time Temp Pulse Resp B/P (MAP) Pulse Ox O2 Delivery O2 Flow Rate FiO2 11/17/19 13:20 136/59 11/17/19 12:30 161/80 11/17/19 09:13 69 133/72 11/17/19 09:13 69 133/72 11/17/19 08:00 98.0 69 18 133/72 (92) 99 11/17/19 06:14 155/68 11/17/19 06:00 60 155/68 (97) 11/17/19 04:51 179/83 11/17/19 04:00 71 11/17/19 04:00 97.3 69 19 179/83 (115) 95 11/17/19 00:00 97.1 75 17 150/79 (102) 97 11/17/19 00:00 75 11/16/19 21:26 164/85 11/16/19 21:22 80 164/85 11/16/19 21:00 Room Air 11/16/19 20:00 97.7 76 19 156/72 (100) 95 11/16/19 20:00 73 11/16/19 18:17 153/69 (97) 11/16/19 16:00 61 11/16/19 16:00 98.2 72 18 182/89 (120) 97 11/16/19 14:00 140/82 Intake and Output 11/16/19 11/17/19 19:00 07:00 Intake Total 2240 ml Output Total 1500 ml 2000 ml Balance -1500 ml 240 ml Intake Oral 240 ml Hemodialysis 2000 ml Output Urine Total 1500 ml Hemodialysis UF 2000 ml # Voids 2 Laboratory Tests 11/17/19 08:30: White Blood Count 9.0, Red Blood Count 4.01L, Hemoglobin 12.2, Hematocrit 36.0L , Mean Corpuscular Volume 90, Mean Corpuscular Hemoglobin 30.4, Mean Corpuscular Hemoglobin Concent 33.9, Red Cell Distribution Width 13.3, Platelet Count 161, Mean Platelet Volume 7.3, Neutrophils (%) (Auto) 65.2, Lymphocytes (% ) (Auto) 23.8, Monocytes (%) (Auto) 8.4, Eosinophils (%) (Auto) 1.4, Basophils ( %) (Auto) 1.2, Sodium Level 142, Potassium Level 3.6, Chloride Level 100, Carbon Dioxide Level 29, Anion Gap 13, Blood Urea Nitrogen 47H, Creatinine 7.1H , Estimat Glomerular Filtration Rate , Glucose Level 111H, Calcium Level 8.6, Phosphorus Level 6.8H, Magnesium Level 2.2, Total Bilirubin 0.4, Direct Bilirubin 0.1, Aspartate Amino Transf (AST/SGOT) 17, Alanine Aminotransferase ( ALT/SGPT) 18, Alkaline Phosphatase 60, Troponin I 0.049, C-Reactive Protein, Quantitative 2.7H, Pro-B-Type Natriuretic Peptide 92947R, Total Protein 7.1, Albumin 3.4 Height (Feet): 5 Height (Inches): 5.00 Weight (Pounds): 146 General Appearance: lethargic EENT: normal ENT inspection Neck: normal alignment Cardiovascular: normal peripheral pulses, normal rate, regular rhythm Respiratory/Chest: chest wall non-tender, lungs clear, normal breath sounds Abdomen: normal bowel sounds, non tender, soft Extremities: normal inspection Edema: no edema noted Arm (L), no edema noted Arm (R), no edema noted Leg (L), no edema noted Leg (R), no edema noted Pedal (L), no edema noted Pedal (R), no edema noted Generalized Neurologic: responsive, motor weakness Skin: normal pigmentation, warm/dry Clarence Knight DO Nov 17, 2019 13:24
--- NOTE | 2019-11-17 13:30 | Nephrology Progress Note ---
Assessment/Plan Problem List: (1) ESRD (end stage renal disease) (2) Hyperkalemia (3) HTN (hypertension) Assessment Hypertension Urgency Hypertensive Kidney Disease ESRD HyperKalemia Plan BP meds- adjusted Dialysis ordered done 11/16 next 11/18 kayexelate- refuses 2D echo 65% EjFx Phos binders per orders Subjective ROS Limited/Unobtainable: No Constitutional: Reports: malaise Objective Objective Last 24 Hour Vital Signs Date Time Temp Pulse Resp B/P (MAP) Pulse Ox O2 Delivery O2 Flow Rate FiO2 11/17/19 13:20 136/59 11/17/19 12:30 161/80 11/17/19 09:13 69 133/72 11/17/19 09:13 69 133/72 11/17/19 08:00 98.0 69 18 133/72 (92) 99 11/17/19 06:14 155/68 11/17/19 06:00 60 155/68 (97) 11/17/19 04:51 179/83 11/17/19 04:00 71 11/17/19 04:00 97.3 69 19 179/83 (115) 95 11/17/19 00:00 97.1 75 17 150/79 (102) 97 11/17/19 00:00 75 11/16/19 21:26 164/85 11/16/19 21:22 80 164/85 11/16/19 21:00 Room Air 11/16/19 20:00 97.7 76 19 156/72 (100) 95 11/16/19 20:00 73 11/16/19 18:17 153/69 (97) 11/16/19 16:00 61 11/16/19 16:00 98.2 72 18 182/89 (120) 97 11/16/19 14:00 140/82 Intake and Output 11/16/19 11/17/19 19:00 07:00 Intake Total 2240 ml Output Total 1500 ml 2000 ml Balance -1500 ml 240 ml Intake Oral 240 ml Hemodialysis 2000 ml Output Urine Total 1500 ml Hemodialysis UF 2000 ml # Voids 2 Laboratory Tests 11/17/19 08:30: White Blood Count 9.0, Red Blood Count 4.01L, Hemoglobin 12.2, Hematocrit 36.0L , Mean Corpuscular Volume 90, Mean Corpuscular Hemoglobin 30.4, Mean Corpuscular Hemoglobin Concent 33.9, Red Cell Distribution Width 13.3, Platelet Count 161, Mean Platelet Volume 7.3, Neutrophils (%) (Auto) 65.2, Lymphocytes (% ) (Auto) 23.8, Monocytes (%) (Auto) 8.4, Eosinophils (%) (Auto) 1.4, Basophils ( %) (Auto) 1.2, Sodium Level 142, Potassium Level 3.6, Chloride Level 100, Carbon Dioxide Level 29, Anion Gap 13, Blood Urea Nitrogen 47H, Creatinine 7.1H , Estimat Glomerular Filtration Rate , Glucose Level 111H, Calcium Level 8.6, Phosphorus Level 6.8H, Magnesium Level 2.2, Total Bilirubin 0.4, Direct Bilirubin 0.1, Aspartate Amino Transf (AST/SGOT) 17, Alanine Aminotransferase ( ALT/SGPT) 18, Alkaline Phosphatase 60, Troponin I 0.049, C-Reactive Protein, Quantitative 2.7H, Pro-B-Type Natriuretic Peptide 67598T, Total Protein 7.1, Albumin 3.4 Height (Feet): 5 Height (Inches): 5.00 Weight (Pounds): 146 General Appearance: no apparent distress Cardiovascular: normal peripheral pulses Respiratory/Chest: lungs clear Abdomen: soft Aden Camp MD Nov 17, 2019 13:30
--- NOTE | 2019-11-17 13:50 | NUR ---
DISCHARGE PLANNING DISCHARGE ORDER NOTED RN TO OBTAIN DISCHARGE CLEARANCE FROM [facility]UR[facility] TO DISCHARGE PATIENT ~ [facility] IS AN [facility]. THE ASSISTED LIVING MAY PROVIDE TRANSPORTATION ~ NURSE NEEDS TO CALL
--- NOTE | 2019-11-17 16:27 | NUR ---
NURSE NOTES: Patient got clearance from dr. Camp to be discharge. Awaiting for Dr. Kimball to get cardiac clearance.
--- NOTE | 2019-11-17 16:30 | NUR ---
NURSE NOTES: Patient is cleared by Dr. Kimball and Dr. Camp. Awaiting for Dr. Knight for medication reconciliation.
--- NOTE | 2019-11-17 18:20 | NUR ---
NURSE NOTES: Patient is refusing Discharge. Primary MD aware
--- NOTE | 2019-11-17 19:19 | NUR ---
HAND-OFF: Report given to Marbella/RN, Patient is in stable condition. Endorsed plan of care.
--- NOTE | 2019-11-17 19:35 | NUR ---
NURSE NOTES: Received pt and report from KB Estraad. Observed pt resting in bed with both eyes open and watching television. Pt is A/Ox3. Pt has a transfer order to [facility] per Dr. Knight; awaiting for housing case manager for arrangement. surveillance system monitor is in place, IV site intact, asymptomatic, and patent. Bed is in the lowest position and locked. Call light and bedside table is within reach. No signs/symptoms of acute distress noted at this time. Will continue plan of care.
[2019-11-18] VITALS (8 sets, daily range): BP systolic 138–203; BP diastolic 70–94
[2019-11-18] MEDS: Zolpidem 5mg tab ORAL PRN ×2 (01:38→22:23)
[2019-11-18] MEDS: HydrALAZINE 50mg tab ORAL SCH ×3 (06:13→19:48)
--- NOTE | 2019-11-18 07:14 | NUR ---
NURSE NOTES: Received report from Marbella/RN, Observed Patient asleep, lying semi-mayorga's, resting comfortably. On room air, no acute distress/SOB noted. Breathing even and unlabored. IV on Left AC & Right FA, patent and asymptomatic, no bleeding or infiltration noted. Bed in low position and locked, Bed alarm engaged, side rails up x3. Call light within reach, Encouraged to use call light when needed. Will continue plan of care.
--- NOTE | 2019-11-18 07:30 | NUR ---
HAND-OFF: Report given to KB Estrada. Plan of care endorsed.
[2019-11-18] MEDS: Docusate 100mg cap ORAL SCH ×3 (09:00→17:23)
[2019-11-18] MEDS: Metoprolol Succinate XL 50mg tab ORAL SCH (09:00)
[2019-11-18 09:09] LABS: BASOPHILS % (AUTO) 1.4 % (0.0-2.0); HEMATOCRIT 33.6 % (37.0-47.0); HEMOGLOBIN 11.6 G/DL (12.0-16.0); LYMPHOCYTES % (AUTO) 27.7 % (20.0-45.0); MEAN CORPUSCULAR VOLUME 89 FL (80-99); MONOCYTES % (AUTO) 10.6 % (1.0-10.0); NEUTROPHILS % (AUTO) 57.3 % (45.0-75.0); PLATELET COUNT 162 K/UL (150-450); RED BLOOD COUNT 3.75 M/UL (4.20-5.40); RED CELL DISTRIBUTION WIDTH 13.2 % (11.6-14.8)
[2019-11-18 09:28] LABS: ANION GAP 12 mmol/L (5-15); BLOOD UREA NITROGEN 62 mg/dL (7-18); CARBON DIOXIDE 29 MMOL/L (21-32); CHLORIDE 100 MMOL/L (98-107); CREATININE 8.6 MG/DL (0.55-1.30); SODIUM 141 MMOL/L (136-145)
[2019-11-18] MEDS: Aspirin EC 81mg tab ORAL SCH (09:35)
[2019-11-18] MEDS: Heparin 5000 units/ml inj SUBQ SCH ×2 (09:46→19:51)
--- NOTE | 2019-11-18 10:00 | NUR ---
TRANSFER/ DISCHARGE PATIENT HAD ORDER FOR DISCHARGE, YESTERDAY DISCHARGE ORDER IS STILL ACTIVE NEW ORDER FOR TRANSFER TO [facility] NOTED SPOKE WITH CITLALLI G[facility] ~ THEY ARE NOT ACCEPTING ANY PATIENT'S AT THIS TIME D/T OVER CAPACITY DISCHARGE DISCUSSED WITH KB SHETH. SHE WILL CALL PATIENT'S SON REGARDING DISCHARGE ORDER.
--- NOTE | 2019-11-18 10:08 | NUR ---
NURSE NOTES: Called pt's son and left message regarding Patient's discharge. Awaiting ornamental ironworker back
--- NOTE | 2019-11-18 10:10 | NUR ---
PT NOTE Attempted to see patient for PT evaluation. Patient declining to participate with PT evaluation, states "Leave me alone." Patient has refused to participate with PT X3 days, will discontinue attempts at this time. Patient discharged from PT, Natalie RN notified.
--- NOTE | 2019-11-18 10:25 | General Progress Note ---
Assessment/Plan Problem List: (1) Hyperkalemia ICD Codes: E87.5 - Hyperkalemia SNOMED: 53768515 (2) Dizziness ICD Codes: R42 - Dizziness and giddiness SNOMED: 481112822, 857610653 (3) ESRD (end stage renal disease) ICD Codes: N18.6 - End stage renal disease SNOMED: 39294049 (4) HTN (hypertension) ICD Codes: I10 - Essential (primary) hypertension SNOMED: 56261254 Status: stable, progressing Assessment/Plan: ot diet bp comtrol dilysis cbc bmp am transfer to [place] Subjective Constitutional: Reports: weakness Allergies: Coded Allergies: No Known Allergies (Unverified , 09/07/16) All Systems: reviewed and negative except above Subjective sl anxious in bed sl dizzy Objective Last 24 Hour Vital Signs Date Time Temp Pulse Resp B/P (MAP) Pulse Ox O2 Delivery O2 Flow Rate FiO2 11/18/19 09:00 68 138/82 11/18/19 09:00 68 138/82 11/18/19 08:00 98.1 68 18 138/82 (100) 99 11/18/19 08:00 57 11/18/19 06:13 147/65 11/18/19 04:00 97.5 60 17 146/94 (111) 95 11/18/19 04:00 50 11/18/19 00:00 97.3 58 19 155/70 (98) 96 11/18/19 00:00 48 11/17/19 21:55 186/77 11/17/19 21:01 71 170/78 11/17/19 21:00 Room Air 11/17/19 20:00 61 11/17/19 20:00 97.0 71 19 170/78 (108) 96 11/17/19 16:00 60 11/17/19 16:00 98.6 83 18 154/86 (108) 98 11/17/19 13:20 136/59 11/17/19 13:00 136/59 (84) 11/17/19 12:30 161/80 11/17/19 12:00 65 11/17/19 12:00 98.3 74 18 160/80 (106) 98 Intake and Output 11/17/19 11/18/19 18:59 06:59 Intake Total 1460 ml 390 ml Balance 1460 ml 390 ml Intake Oral 1460 ml 390 ml # Voids 8 3 # Bowel Movements 1 Laboratory Tests 11/18/19 08:40: White Blood Count 8.0, Red Blood Count 3.75L, Hemoglobin 11.6L, Hematocrit 33.6L , Mean Corpuscular Volume 89, Mean Corpuscular Hemoglobin 31.0, Mean Corpuscular Hemoglobin Concent 34.6, Red Cell Distribution Width 13.2, Platelet Count 162, Mean Platelet Volume 6.7, Neutrophils (%) (Auto) 57.3, Lymphocytes (% ) (Auto) 27.7, Monocytes (%) (Auto) 10.6H, Eosinophils (%) (Auto) 3.0, Basophils (%) (Auto) 1.4, Sodium Level 141, Potassium Level 4.0, Chloride Level 100, Carbon Dioxide Level 29, Anion Gap 12, Blood Urea Nitrogen 62H, Creatinine 8.6H, Estimat Glomerular Filtration Rate , Glucose Level 95, Calcium Level 9.0 Height (Feet): 5 Height (Inches): 5.00 Weight (Pounds): 151 General Appearance: lethargic EENT: normal ENT inspection Neck: normal alignment Cardiovascular: normal peripheral pulses, normal rate, regular rhythm Respiratory/Chest: chest wall non-tender, lungs clear, normal breath sounds Abdomen: normal bowel sounds, non tender, soft Extremities: normal inspection Edema: no edema noted Arm (L), no edema noted Arm (R), no edema noted Leg (L), no edema noted Leg (R), no edema noted Pedal (L), no edema noted Pedal (R), no edema noted Generalized Neurologic: responsive, motor weakness Skin: normal pigmentation, warm/dry Clarence Knight DO Nov 18, 2019 10:25
--- NOTE | 2019-11-18 11:55 | Cardiac Electrophysiology PN ---
Assessment/Plan Assessment/Plan 1. Accelerated HTN. Her EKG is completely normal. Continue Norvasc 10 mg daily, hydralazine 75 mg tid and metoprolol 50 mg bid. Also on hemodialysis. Ruled out for CA. Echo EF 65% 2. End-stage renal disease, on hemodialysis. 3. Hyponatremia, resolved. 4. Hyperkalemia. S/P dialysis. JB RN DC today Subjective Subjective No CP or SOB. Remained in SR. Getting HD before DC today Objective Last 24 Hour Vital Signs Date Time Temp Pulse Resp B/P (MAP) Pulse Ox O2 Delivery O2 Flow Rate FiO2 11/18/19 09:00 68 138/82 11/18/19 09:00 68 138/82 11/18/19 09:00 Room Air 11/18/19 08:00 98.1 68 18 138/82 (100) 99 11/18/19 08:00 57 11/18/19 06:13 147/65 11/18/19 04:00 97.5 60 17 146/94 (111) 95 11/18/19 04:00 50 11/18/19 00:00 97.3 58 19 155/70 (98) 96 11/18/19 00:00 48 11/17/19 21:55 186/77 11/17/19 21:01 71 170/78 11/17/19 21:00 Room Air 11/17/19 20:00 61 11/17/19 20:00 97.0 71 19 170/78 (108) 96 11/17/19 16:00 60 11/17/19 16:00 98.6 83 18 154/86 (108) 98 11/17/19 13:20 136/59 11/17/19 13:00 136/59 (84) 11/17/19 12:30 161/80 11/17/19 12:00 65 11/17/19 12:00 98.3 74 18 160/80 (106) 98 Intake and Output 11/17/19 11/18/19 19:00 07:00 Intake Total 1460 ml 390 ml Balance 1460 ml 390 ml Intake Oral 1460 ml 390 ml # Voids 8 3 # Bowel Movements 1 Laboratory Tests Test 11/18/19 08:40 White Blood Count 8.0 K/UL (4.8-10.8) Red Blood Count 3.75 M/UL (4.20-5.40) L Hemoglobin 11.6 G/DL (12.0-16.0) L Hematocrit 33.6 % (37.0-47.0) L Mean Corpuscular Volume 89 FL (80-99) Mean Corpuscular Hemoglobin 31.0 PG (27.0-31.0) Mean Corpuscular Hemoglobin Concent 34.6 G/DL (32.0-36.0) Red Cell Distribution Width 13.2 % (11.6-14.8) Platelet Count 162 K/UL (150-450) Mean Platelet Volume 6.7 FL (6.5-10.1) Neutrophils (%) (Auto) 57.3 % (45.0-75.0) Lymphocytes (%) (Auto) 27.7 % (20.0-45.0) Monocytes (%) (Auto) 10.6 % (1.0-10.0) H Eosinophils (%) (Auto) 3.0 % (0.0-3.0) Basophils (%) (Auto) 1.4 % (0.0-2.0) Sodium Level 141 MMOL/L (136-145) Potassium Level 4.0 MMOL/L (3.5-5.1) Chloride Level 100 MMOL/L (98-107) Carbon Dioxide Level 29 MMOL/L (21-32) Anion Gap 12 mmol/L (5-15) Blood Urea Nitrogen 62 mg/dL (7-18) H Creatinine 8.6 MG/DL (0.55-1.30) H Estimat Glomerular Filtration Rate mL/min (>60) Glucose Level 95 MG/DL (74-106) Calcium Level 9.0 MG/DL (8.5-10.1) Microbiology Date/Time Source Procedure Growth Status 11/15/19 19:18 Nasal Nares MRSA Culture - Final NO METHICILLIN RESISTANT STAPH AUREUS... Complete 11/16/19 05:40 Rectum VRE Culture - Final NO VANCOMYCIN RESISTANT ENTEROCOCCUS ... Complete Objective HEAD AND NECK: No JVD. LUNGS: Clear. CARDIOVASCULAR: Regular S1 and S2 with no gallop or murmur. ABDOMEN: Soft. EXTREMITIES: No pitting edema. Dialysis access in the right chest. Gilmar Kimball MD Nov 18, 2019 11:55
--- NOTE | 2019-11-18 11:58 | NUR ---
DISCHARGE PLANNING [facility] IS NOT ACCEPTING ANY PATIENTS AT THIS TIME. THEY ARE CURRENTLY OVER CAPACITY DR POLLOCK HAS BEEN INFORMED DISCUSSED WITH NURSE......CANNOT TRANSFER TO [facility]....CANNOT TRANSFER TO [facility]
--- NOTE | 2019-11-18 12:32 | Nephrology Progress Note ---
Assessment/Plan Problem List: (1) ESRD (end stage renal disease) (2) Hyperkalemia (3) HTN (hypertension) Assessment Hypertension Urgency Hypertensive Kidney Disease ESRD HyperKalemia Plan check TFTs BP meds- adjustment Dialysis ordered done 11/16 next 11/18 kayexelate- refuses 2D echo 65% EjFx Phos binders per orders Subjective ROS Limited/Unobtainable: No Constitutional: Reports: malaise Objective Objective Last 24 Hour Vital Signs Date Time Temp Pulse Resp B/P (MAP) Pulse Ox O2 Delivery O2 Flow Rate FiO2 11/18/19 09:00 68 138/82 11/18/19 09:00 68 138/82 11/18/19 09:00 Room Air 11/18/19 08:00 98.1 68 18 138/82 (100) 99 11/18/19 08:00 57 11/18/19 06:13 147/65 11/18/19 04:00 97.5 60 17 146/94 (111) 95 11/18/19 04:00 50 11/18/19 00:00 97.3 58 19 155/70 (98) 96 11/18/19 00:00 48 11/17/19 21:55 186/77 11/17/19 21:01 71 170/78 11/17/19 21:00 Room Air 11/17/19 20:00 61 11/17/19 20:00 97.0 71 19 170/78 (108) 96 11/17/19 16:00 60 11/17/19 16:00 98.6 83 18 154/86 (108) 98 11/17/19 13:20 136/59 11/17/19 13:00 136/59 (84) Intake and Output 11/17/19 11/18/19 19:00 07:00 Intake Total 1460 ml 390 ml Balance 1460 ml 390 ml Intake Oral 1460 ml 390 ml # Voids 8 3 # Bowel Movements 1 Laboratory Tests 11/18/19 08:40: White Blood Count 8.0, Red Blood Count 3.75L, Hemoglobin 11.6L, Hematocrit 33.6L , Mean Corpuscular Volume 89, Mean Corpuscular Hemoglobin 31.0, Mean Corpuscular Hemoglobin Concent 34.6, Red Cell Distribution Width 13.2, Platelet Count 162, Mean Platelet Volume 6.7, Neutrophils (%) (Auto) 57.3, Lymphocytes (% ) (Auto) 27.7, Monocytes (%) (Auto) 10.6H, Eosinophils (%) (Auto) 3.0, Basophils (%) (Auto) 1.4, Sodium Level 141, Potassium Level 4.0, Chloride Level 100, Carbon Dioxide Level 29, Anion Gap 12, Blood Urea Nitrogen 62H, Creatinine 8.6H, Estimat Glomerular Filtration Rate , Glucose Level 95, Calcium Level 9.0 Height (Feet): 5 Height (Inches): 5.00 Weight (Pounds): 151 General Appearance: no apparent distress Cardiovascular: bradycardia Respiratory/Chest: decreased breath sounds Abdomen: soft Aden Camp MD Nov 18, 2019 12:32
[2019-11-18] MEDS ORDERED: Losartan 25mg tab ORAL SCH (12:45)
--- NOTE | 2019-11-18 13:30 | NUR ---
NURSE NOTES: Asked Dr. Knight to have discharge order to [facility], instead of transfer to [place]. Dr. Knight wants me to ask patient, Patient still refusing to go. I called her son for second time to talk with him regarding discharge, Awaiting call back
[2019-11-18 13:37] LABS: PHOSPHORUS 6.8 MG/DL (2.5-4.9)
--- NOTE | 2019-11-18 13:41 | NUR ---
*-* DISCHARGE PLANNING*-* THIS PATIENT HAS BEEN REFERRED TO: [facility] P: [phone] F: [phone]
--- NOTE | 2019-11-18 16:16 | NUR ---
NURSE NOTES: I have been trying to get medication reconciliation completed by primary MD, Dr. Knight for discharge, but Dr. Knight stated to contact Dr. Kimball or Dr. Hammonds to complete med reconciliation. RN tried contacting Dr. Kimball, he was able to tell me just BP medications. Dr. Hammonds is not consulted on this case. This is not the first time that I'm having hard time to get medication reconciliation from doctor Eugene, this is a consistent issue.
--- NOTE | 2019-11-18 16:43 | NUR ---
*-*DISCHARGE PLANNING*-* PATIENT HAS BEEN REFERRED TO: [facility] P: [phone] F: [phone] EMAIL: [email or web address] *-*CINICALS EMAILED*-* *-*CLINICALS FAXED*-*
--- NOTE | 2019-11-18 17:00 | NUR ---
NURSE NOTES: Patient refused to have picture taken, per discharge protocol.
--- NOTE | 2019-11-18 19:33 | NUR ---
HAND-OFF: Report given to Mora/RN, Patient in stable condition. Endorsed plan of care.
--- NOTE | 2019-11-18 19:55 | NUR ---
NURSE NOTES: Received pt from KB Estrada. Pt awake, alert, and c/o htn. Rechecked BP and it was 203 systolic on the right arm. medication given. Bed in lowest position. Call light within reach. Will continue to monitor.
--- NOTE | 2019-11-18 20:41 | NUR ---
NURSE NOTES: pts BP is 182 systolic but going down. Educated pt on risks but pt still wants to be d/c'd. Called and spoke with front desk person at the facility, they reported that there is no parameters for BP that she knows about and nurse in charge has gone home. Will call the MD and will continue to monitor.
--- NOTE | 2019-11-18 20:56 | NUR ---
NURSE NOTES: Called and left a message with Dr. Knight and Dr. Kimball informing them that pt was unable to be D/C'd d/t pts HTN. Also reported that pt is anxious and has no PRN meds. Awaiting call back.
[2019-11-18] MEDS ORDERED: Atorvastatin 20mg tab ORAL SCH (21:00)
[2019-11-18] MEDS ORDERED: LORazepam 1mg tab ORAL PRN (23:15)
[2019-11-19] VITALS: BP 137/71
--- NOTE | 2019-11-19 01:14 | NUR ---
HAND-OFF: Report given to KB Huizar. Pt stable.
--- NOTE | 2019-11-19 01:15 | NUR ---
NURSE NOTES: Got report from Mora QUILES. Pt in stable condition. Denies any pain. No s/s of distress or discomfort noted. Pt resting in bed comfortably. Bed in low and locked position, call light within reach, bedside table within reach. Continue to monitor.
[2019-11-19 04:00] VITALS: BP 138/66
[2019-11-19] MEDS: HydrALAZINE 50mg tab ORAL SCH (06:17)
--- NOTE | 2019-11-19 07:20 | NUR ---
NURSE NOTES: Nurse report given by KB Huizar. Patient's in sitting in bed, high mayorga to eat breakfast, AO x 3, eyes open spontaneously, breathing unlabored and regular, no s/s of distress or SOB, denies pain. Bed low and locked, call light within reach, patient relations manager rails x2, bed alarm is armed. Right chest permacath is present. Previous shift nurse reported already d/c IV due to patient was originally discharge but due to high blood pressure so MD ordered to monitor patient overnight, if stable then she can discharge back to [facility] today. Will continue to monitor closely.
--- NOTE | 2019-11-19 07:30 | NUR ---
HAND-OFF: Report given to Sweta QUILES.
[2019-11-19 08:00] VITALS: BP 124/58
[2019-11-19] MEDS: Aspirin EC 81mg tab ORAL SCH (08:25)
[2019-11-19] MEDS: Docusate 100mg cap ORAL SCH (08:25)
[2019-11-19 08:26] VITALS: BP 124/58
[2019-11-19] MEDS: Heparin 5000 units/ml inj SUBQ SCH (08:26)
[2019-11-19] MEDS ORDERED: Metoprolol Succinate XL 50mg tab ORAL SCH (09:00)
[2019-11-19] MEDS ORDERED: Losartan 25mg tab ORAL SCH (09:00)
--- NOTE | 2019-11-19 09:22 | NUR ---
NURSE NOTES: Patient's discharged per Dr. Knight's order. Patient's picked up by son CHRIS, refused to be picked up by [facility], stated he would like to transfer patient to [facility]. Patient's belonging list and discharge document went over with patient and signed by patient. residential monitor, IV and ID bands were removed from previous shift. Patient's in stable condition, ambulates with assist, Ao x3, denies pain, no s/s of distress or SOB. Son was present at beside. Patient was being wheeled out of hospital by RN. Charge nurse Theresa and fresh foods technician aware of patient's discharge.
--- NOTE | 2019-11-19 09:40 | Cardiac Electrophysiology PN ---
Assessment/Plan Assessment/Plan 1. Accelerated HTN. Her EKG is completely normal. Continue Norvasc 10 mg daily, hydralazine 75 mg tid, metoprolol 50 mg bid and hemodialysis. Ruled out for [place]. Echo EF 65% 2. End-stage renal disease, on hemodialysis. 3. Hyponatremia, resolved. 4. Hyperkalemia. S/P dialysis. JB RN and Dr Camp DC today Subjective Subjective No CP or SOB. Remained in SR. Had HD yesterday and being DCed today Objective Last 24 Hour Vital Signs Date Time Temp Pulse Resp B/P (MAP) Pulse Ox O2 Delivery O2 Flow Rate FiO2 11/19/19 08:26 124/58 11/19/19 08:26 61 124/58 11/19/19 08:25 61 124/58 11/19/19 08:00 98.1 61 16 124/58 (80) 98 11/19/19 06:17 138/66 11/19/19 04:00 98.0 62 18 138/66 (90) 97 11/19/19 00:00 97.7 66 18 137/71 (93) 95 11/18/19 22:25 64 148/75 (99) 11/18/19 21:00 Room Air 11/18/19 20:41 77 182/92 (122) 11/18/19 19:49 203/85 11/18/19 19:48 203/85 11/18/19 19:47 69 203/85 (124) 95 11/18/19 17:33 65 154/70 11/18/19 16:00 65 11/18/19 16:00 97.2 62 18 154/70 (98) 97 11/18/19 13:16 149/75 11/18/19 13:15 149/75 11/18/19 12:00 97.9 61 18 149/75 (99) 98 11/18/19 12:00 61 Intake and Output 11/18/19 11/19/19 19:00 07:00 Intake Total 3260 ml Balance 3260 ml Intake Oral 1260 ml Hemodialysis 2000 ml # Voids 3 3 Objective HEAD AND NECK: No JVD. LUNGS: Clear. CARDIOVASCULAR: Regular S1 and S2 with no gallop or murmur. ABDOMEN: Soft. EXTREMITIES: No pitting edema. Dialysis access in the right chest. Gilmar Kimball MD Nov 19, 2019 09:40
--- NOTE | 2019-11-19 19:30 | Progress Note ---
DATE: 11/19/2019 SUBJECTIVE: The patient is doing well. No behavior issues noted. During my evaluation, however, the patient has been refusing and uncooperative with the staff. MENTAL STATUS EXAMINATION: Alert and oriented x3. Mood is irritable. Affect is constricted. Congruent with mood. Thought process is concrete. Thought content, no suicidal or homicidal ideation. Cognition is impaired. Insight and judgment is impaired. ASSESSMENT: 1. Major depressive disorder. 2. Anxiety disorder. PLAN: Continue current psychotropic medication. Provide the patient with orientation and supportive therapy. Ermias Fu M.D. DR: IZZY JOB#: [id number] CC:
--- NOTE | 2019-11-20 22:15 | Discharge Summary ---
Discharge Summary Discharge Summary _ DATE OF ADMISSION: 11/15/2019 DATE OF DISCHARGE: 11/19/2019 DISCHARGED BY: Dr. Knight REASON FOR ADMISSION: 79 years old female with past medical history of end-stage renal disease, on hemodialysis ,hypertension, presented with increased dizziness and elevated blood pressure . Troponin was negative . EKG revealed sinus rhythm , no acute ischemic changes . CT of the head revealed no acute intracranial pathology. Chest x-ray demonstrated no acute cardiopulmonary pathology. After initial evaluation in emergency department patient was admitted to telemetry floor for further management. CONSULTANTS: player manager Dr. Solares memorial designer Dr. Camp psychiatrist [facility]: Patient admitted to telemetry floor. Profiling Machine Set Up Operator closely followed. Repeated serial troponinswere negative. EKG revealed no acute ischemic changes . Patient was ruled out for acute myocardial infarction. Echocardiogram demonstrated preserved ejection fraction of 60 to 65% with no evidence of wall motion abnormality. Mild to moderate mitral regurgitation. Right ventricular systolic pressure of 33. Blood pressure was closely monitored. Antihypertensive regimen was optimized as per player manager and memorial designer and contained multiply antihypertensive medications. Blood pressure stabilized. Supplemental oxygen was on board as needed to keep pulse oximetry above 92%. Hemodialysis provided as per memorial designer recommendations with close monitoring of volumes and renal parameters. Electrolytes corrected as needed. Last potassium 4.0. Phosphorus binders provided due to elevated phosphorus. Levothyroxine continued. TSH within normal limits. DVT and GI prophylaxis provided. Supportive care provided. Per psychiatrist , patient had anxiety disorder along with major depressive disorder. Reality orientation and supportive therapy provided. Current psychiatric medication regimen was continued. Patient clinically stabilized and was ready for discharge home with home health services to follow. FINAL DIAGNOSES: Hypertensive urgency-resolved End-stage renal disease, on hemodialysis Hypertensive kidney disease Hyperkalemia Anxiety disorder Major depressive disorder DISCHARGE MEDICATIONS: See Medication Reconciliation list. DISCHARGE INSTRUCTIONS: Patient was discharged home with home health services. Follow up with primary care provider in one week. I have been assigned to dictate discharge summary for this account. I was not involved in the patient's management. Farhana Francois NP Nov 20, 2019 22:14
== END 2019-11-19 10:21 | disposition home health service (06) | DRG 640 ==
LOC: EDBD 15:34 → EMR 16:07 → EDBEDREQSVC 16:50 → 2E 17:36 → EDBEDREQ 18:36 → 2E 11-16 00:52
PROC: 5A1D70Z Performance of Urinary Filtration, Intermittent, Less than 6 Hours Per Day (ICD-10-PCS; principal; 2019-11-16)
DX: E87.5 Hyperkalemia (principal); N18.6 End stage renal disease; I12.0 Hypertensive chronic kidney disease with stage 5 chronic kidney disease or end stage renal disease; I16.0 Hypertensive urgency; E87.1 Hypo-osmolality and hyponatremia; E11.22 Type 2 diabetes mellitus with diabetic chronic kidney disease; Z99.2 Dependence on renal dialysis; F32.9 Major depressive disorder, single episode, unspecified; F41.9 Anxiety disorder, unspecified
CPT/HCPCS: 36415; 70450; 71045; 80048; 80053; 80061; 80076; 82550; 82962; 83036; 83690; 83735; 83880; 84100; 84439; 84443; 84481; 84484; 84550; 85025; 86140; 86706; 87081; 93005; 93306; 96374; 96375; 99285